=== PATIENT | female | born 1950 | race Caucasian/White ===

== ENCOUNTER 2019-09-16 00:54 | Outpatient (CLI) | payer MEDICARE, SELFPAY ==
[2019-09-16 20:03] LABS: SARS-CoV-2 RNA PCR Negative
== END 2019-09-16 00:55 | disposition home or self-care (01) ==
LOC: ANHCOVIDDT 00:55
PROVIDERS: PCP Student in an Organized Health Care Education/Training Program; Visit Provider Internal Medicine Gastroenterology
DX: Z01.812 Encounter for preprocedural laboratory examination (principal); Z11.59 Encounter for screening for other viral diseases
CPT/HCPCS: 87635; C9803; U0003

== ENCOUNTER 2019-09-18 01:54 | Day surgery (SDC) | payer MEDICARE, SELFPAY ==
[2019-09-10 11:54] VITALS: BMI 18.8
[2019-09-18 08:54] VITALS: BP 132/57; PULSE 92; RESP 18; TEMP 36.2; O2SAT 99; BMI 26.9
[2019-09-18] MEDS: LACTATED RINGERS 1,000 ML 150 ML IV CONT (09:03)
--- NOTE | 2019-09-18 09:13 | WPDANESEPPF ---
Anes - Initial Pre Proc Eval Procedure: Operation Date: 09/18/19 10:00 Proposed Procedures p Screening Colonoscopy - Sumeet Garrison MD Date/Time: 09/18/19 09:13 Surgeon: Sumeet Garrison MD Pre Op Diagnosis: Hx of Colon Polyps Patient Data Age: 68 Gender: F Height: 5 ft 5 in Weight: 73.5 kg Last Vital Signs Temp 97.2 F L 09/18/19 08:54 Pulse 92 09/18/19 08:54 Resp 18 09/18/19 08:54 BP 132/57 L 09/18/19 08:54 Pulse Ox 99 09/18/19 08:54 Allergies Allergy/AdvReac Type Severity Reaction Status Date / Time No Known Allergies Allergy Unknown Unverified 09/18/19 08:53 Home Medications Medication Instructions Recorded Confirmed Type Calcium 600 with Vitamin D3 600 mg PO DAILY 09/10/19 09/18/19 History biotin 10,000 mcg PO DAILY 09/10/19 09/18/19 History ibuprofen 600 mg PO BID 09/10/19 09/18/19 History multivitamin,[id number] 1 tablet PO DAILY 09/10/19 09/18/19 History [Complete Multivitamin] Patient hx anesthesia problems: none Family hx anesthesia problems: none PMFSH Past Medical History Medical History (Updated 09/18/19 @ 09:13 by Hollis Bond MD) CAD (coronary artery disease) h/o LBBB now resolved Family History Family History (Updated 06/17/16 @ 23:56 by DOCTOR UNKNOWN) Father Family history of coronary artery disease Family history of malignant neoplasm of urinary bladder Patient's father is Acute myocardial infarction Grandparent Acute myocardial infarction, Onset Age: 72 Family history of respiratory disorder, Onset Age: 97 Family history of malignant neoplasm Sibling Family history of sleep apnea Acute myocardial infarction Mother Patient's mother is Other Asthma Diabetes mellitus Family history of cardiovascular disease Hypertension Malignant neoplasm of prostate Social History Social History Smoking status: Never smoker Second hand tobacco smoke exposure: No Alcohol intake: never Anes - Eval Final PreProcedure Day of Procedure 09/18/19 09:13 Patient weight: normal Heart: regular rate and rhythm Lungs: clear to auscultation Airway: Mallampati scale class II Neurological: alert and oriented Last oral intake: >/= 8 hours ASA classification: II Emergent: no Anesthetic plan: proceed Anesthesia type and monitoring: general GIVS and standard monitoring Informed Consent: The patient's anesthetic plan and its attendant risks and benefits were discussed with the patient/family/POA. Questions were solicited and answers provided to the satisfaction of the patient/family/POA.
--- NOTE | 2019-09-18 09:14 | WPDGICN ---
Assessment and Plan Assessment and plan (1) History of colon polyps: Code(s): Z86.010 - Personal history of colonic polyps Status: Acute Assessment and Plan: Patient has a history of colon polyps. Previous colonoscopy was in 2014. Her current weight appetite bowel and normal. Pain is to proceed with surveillance colonoscopy at this time. GI Consult Note Consult date/time: 09/18/19 09:14 HPI: No Barrios is a 68 year old female Seen in evaluation at the request of Dr. Lynne. Patient has a prior history of colon polyps. She presents today for surveillance colonoscopy. Her current weight appetite bowel was normal. She denies abdominal pain. She denies any bleeding. Her family history is noncontributory. Review of Systems Review of Systems: All systems reviewed & are unremarkable except as noted in HPI and below PMFSH Past Medical History Medical History CAD (coronary artery disease) h/o LBBB now resolved Family History Family History Father Family history of coronary artery disease Family history of malignant neoplasm of urinary bladder Patient's father is Acute myocardial infarction Grandparent Acute myocardial infarction, Onset Age: 72 Family history of respiratory disorder, Onset Age: 97 Family history of malignant neoplasm Sibling Family history of sleep apnea Acute myocardial infarction Mother Patient's mother is Other Asthma Diabetes mellitus Family history of cardiovascular disease Hypertension Malignant neoplasm of prostate Social History Social History Smoking status: Never smoker Second hand tobacco smoke exposure: No Alcohol intake: never Meds Home Medications and Allergies Home Medications Medication Instructions Recorded Confirmed Type Calcium 600 with Vitamin D3 600 mg PO DAILY 09/10/19 09/18/19 History biotin 10,000 mcg PO DAILY 09/10/19 09/18/19 History ibuprofen 600 mg PO BID 09/10/19 09/18/19 History multivitamin,[id number] 1 tablet PO DAILY 09/10/19 09/18/19 History [Complete Multivitamin] Allergies Allergy/AdvReac Type Severity Reaction Status Date / Time No Known Allergies Allergy Unknown Unverified 09/18/19 08:53 Vital Signs Vital Signs - 24 hr 09/18/19 08:54 Temperature 97.2 F L Pulse Rate 92 Respiratory Rate 18 Blood Pressure 132/57 L Pulse Oximetry 99 Exam Narrative: Exam Narrative: Physical exam reveals patient to be alert. Vital signs stable. HEENT exam unremarkable. Lungs are clear to auscultation and percussion. Heart is without murmur or extra sounds. Abdominal exam bowel sounds are present soft nontender with no organomegaly. Digital external rectal exam is normal.
[2019-09-18 10:28] VITALS: BP 112/63; PULSE 81; RESP 23; O2SAT 98
[2019-09-18 10:38] VITALS: BP 109/61; PULSE 82; RESP 20; O2SAT 98
[2019-09-18 10:48] VITALS: BP 117/68; PULSE 56; RESP 16; O2SAT 99
== END 2019-09-18 11:09 | disposition home or self-care (01) ==
PROVIDERS: PCP Student in an Organized Health Care Education/Training Program; Visit Provider Internal Medicine Gastroenterology
PROC: 0DJD8ZZ Inspection of Lower Intestinal Tract, Via Natural or Artificial Opening Endoscopic (ICD-10-PCS; CPT 45378; principal; 2019-09-18 10:00)
DX: Z12.11 Encounter for screening for malignant neoplasm of colon (principal); K64.8 Other hemorrhoids; Z86.010 Personal history of colon polyps; I25.10 Atherosclerotic heart disease of native coronary artery without angina pectoris
CPT/HCPCS: G0105; 87635; C9803; J2704; J7120; U0003